=== PATIENT | male | born 1945 | race Caucasian/White ===

== ENCOUNTER 2019-04-03 20:45 | Observation (INO) | payer OTHER ==
[2019-04-03 21:29] LABS: Basophils % 0.8 % (0-1.3); Hematocrit 40.4 % (39.6-49.0); Lymphocytes % 32.2 % (15.3-44.8); MPV 10.7 fL (7.6-11.3); RBC Red Blood Cell Count 3.95 M/uL (4.33-5.43)
[2019-04-03 21:34] LABS: Protime INR 3.08
[2019-04-03 21:50] LABS: ALT/SGPT 20 U/L (12-78); AST/SGOT 31 U/L (15-37); Albumin 4.1 g/dL (3.4-5.0); Alkaline Phosphatase 111 U/L (45-117); BUN Blood Urea Nitrogen 11 mg/dL (7-18); Bicarbonate 28 mmol/L (21-32); Bilirubin Direct 0.4 mg/dL (0-0.2); Glucose Level 116 mg/dL (74-106); Magnesium 1.7 mg/dL (1.8-2.4); NT PRO-BNP 1007 pg/mL (<125); Potassium 4.2 mmol/L (3.5-5.1); Protein, Total 7.5 g/dL (6.4-8.2); Sodium Level 131 mmol/L (136-145); Troponin (Emerg Dept Use Only) < 0.02 ng/mL (0.0-0.045)
[2019-04-03] MEDS ORDERED: FENTANYL CITR 100 MCG/2 ML ONE (22:40)
[2019-04-03] MEDS ORDERED: MORPHINE 4 MG/ML SYR ONE (22:43)
--- NOTE | 2019-04-03 23:01 | ER ---
Nurse's Notes [facility] Name: Qamar Gamino Jr Age: 73 yrs Sex: Male : 1945 Arrival Date: 04/03/2019 Time: 20:46 Bed 14 Private MD: Diagnosis: Chest pain, unspecified;Altered mental status, unspecified-possible seizure Presentation: 04/03 20:50 Presenting complaint: Patient states: C/O chest pain that started 15 minutes ago. Pt wh states he feels weak. Per Son Pt had a seizure episode where he was blank and diaphoretic. Transition of care: patient was not received from another setting of care. Onset of symptoms was April 03, 2019. Risk Assessment: Do you want to hurt yourself or someone else? Patient reports no desire to harm self or others. Initial Sepsis Screen: Does the patient meet any 2 criteria? No. Patient's initial sepsis screen is negative. Does the patient have a suspected source of infection? No. Patient's initial sepsis screen is negative. Care prior to arrival: None. 20:50 Method Of Arrival: Wheelchair 20:50 Acuity: LYLE 3 Historical: - Allergies: 21:37 No Known Allergies; wh - Home Meds: 21:37 gabapentin oral oral [Active]; Coumadin Oral [Active]; - PMHx: 21:37 Cirrhosis; - PSHx: 21:37 Back Surgery; - Immunization history:: Adult Immunizations unknown. - Social history:: Smoking status: Patient/guardian denies using tobacco. - Ebola Screening: : Patient negative for fever greater than or equal to 101.5 degrees Fahrenheit, and additional compatible Ebola Virus Disease symptoms Patient denies exposure to infectious person. Screenin:37 Abuse screen: Denies threats or abuse. Denies injuries from another. Nutritional screening: No deficits noted. Tuberculosis screening: No symptoms or risk factors identified. Fall Risk None identified. Assessment: 21:00 General: Appears in no apparent distress. Behavior is calm, cooperative, appropriate wh for age. Pain: Complains of pain in chest Pain does not radiate. Pain currently is 2 out of 10 on a pain scale. Quality of pain is described as pressure, Pain began gradually, 30 min ago. Neuro: Level of Consciousness is awake, alert, obeys commands, Oriented to person, place, time, situation, Appropriate for age Health Informatics Instructor are equal bilaterally Moves all extremities. Gait is steady, Speech is normal, Facial symmetry appears normal, Pupils are PERRLA. Cardiovascular: Reports chest pain, Heart tones S1 S2 Rhythm is atrial fibrillation. Respiratory: Airway is patent Respiratory effort is even, unlabored, Respiratory pattern is regular, symmetrical, Breath sounds are clear bilaterally. GI: Abdomen is flat, non-distended. : No signs and/or symptoms were reported regarding the genitourinary system. EENT: No signs and/or symptoms were reported regarding the EENT system. Derm: Skin is intact, is healthy with good turgor, Skin is pink, warm \T\ dry. normal. Musculoskeletal: Circulation, motion, and sensation intact. 21:40 Reassessment: Patient appears in no apparent distress at this time. No changes from previously documented assessment. Patient and/or family updated on plan of care and expected duration. Pain level reassessed. Patient is alert, oriented x 3, equal unlabored respirations, skin warm/dry/pink. 22:30 Reassessment: Patient appears in no apparent distress at this time. No changes from previously documented assessment. Patient and/or family updated on plan of care and expected duration. Pain level reassessed. Patient is alert, oriented x 3, equal unlabored respirations, skin warm/dry/pink. 23:30 Reassessment: Patient appears in no apparent distress at this time. No changes from previously documented assessment. Patient and/or family updated on plan of care and expected duration. Pain level reassessed. Patient is alert, oriented x 3, equal unlabored respirations, skin warm/dry/pink. MD at bedside explaining POC need for admit. Reassessment:. 04/04 00:26 Reassessment: Patient appears in no apparent distress at this time. No changes from previously documented assessment. Patient and/or family updated on plan of care and expected duration. Pain level reassessed. Patient is alert, oriented x 3, equal unlabored respirations, skin warm/dry/pink. Patient states symptoms have improved. 01:20 Reassessment: Patient appears in no apparent distress at this time. No changes from previously documented assessment. Patient and/or family updated on plan of care and expected duration. Pain level reassessed. Patient is alert, oriented x 3, equal unlabored respirations, skin warm/dry/pink. Patient states symptoms have improved. Vital Signs: 04/03 20:50 BP 127 / 70; Pulse 59; Resp 18; Temp 98.4; Pulse Ox 100% ; Weight 105.19 kg; Height 5 wh ft. 9 in. (175.26 cm); Pain 5/10; 21:41 BP 138 / 64; Pulse 70; Resp 16; Pulse Ox 100% ; 23:00 BP 140 / 68; Pulse 71; Resp 18; Pulse Ox 97% ; 04/04 00:15 BP 138 / 92; Pulse 68; Resp 18; Pulse Ox 98% on R/A; 01:15 BP 155 / 78; Pulse 64; Resp 18; Pulse Ox 98% on R/A; 04/03 20:50 Body Mass Index 34.25 (105.19 kg, 175.26 cm) ED Course: 04/03 20:46 Patient arrived in ED. es 20:47 [facility]ulo [facility]C [facility] snw 20:47 Ori Hollingsworth MD is Attending Physician. snw 21:00 Arm band placed on right wrist. 21:00 Patient has correct armband on for positive identification. Placed in gown. Bed in low wh position. Call light in reach. Side rails up X 1. hall monitor on. Pulse ox on. NIBP on. 21:00 Inserted saline lock: 20 gauge in right antecubital area, using aseptic technique. wh Blood collected. Patient maintains SpO2 saturation greater than 95% on room air. 21:30 Clarissa Kenyon is Primary Nurse. 21:32 XRAY Chest (1 view) In Process Unspecified. EDMS 21:33 Triage completed. 21:34 CT Head C Spine In Process Unspecified. EDMS 22:57 Valente Anne MD is Hospitalizing Provider. snw 04/04 01:24 No provider procedures requiring assistance completed. Patient admitted, IV remains in place. Administered Medications: 04/03 22:37 CANCELLED (Inappropriate at this time): fentaNYL (PF) 25 mcg IVP once; RASS on ADMIN: snw Combtv4, Very Agttd3, Agttd2, Rstlss1, AlertClm0, Drwsy-1, Lt Sdtn-2, Mod Sdtn-3, Dp Sdtn-4, UnArsble-5 22:44 Drug: morphine 4 mg Route: IVP; Site: right antecubital; 04/04 00:21 Follow up: Response: No adverse reaction; Pain is decreased; RASS: Alert and Calm (0) Outcome: 04/03 23:00 Decision to Hospitalize by Provider. snw 04/04 01:24 Admitted to Med/surg accompanied by nurse, via wheelchair, room 209, with chart, Report called to Samreen RAMOS Condition: stable Instructed on the need for admit. 01:26 Patient left the ED. Signatures: Dispatcher [employer] Becca Lala, CARL LUBRICATION EQUIPMENT SERVICER-CsnGia Vargas Winsy Corrections: (The following items were deleted from the chart) 04/03 21:40 21:37 Pain: Pain began [facility]
--- NOTE | 2019-04-03 23:01 | EDPHYS ---
Physician Documentation [facility] Name: Qamar Gamino Jr Age: 73 yrs Sex: Male : 1945 Arrival Date: 04/03/2019 Time: 20:46 Bed 14 Private MD: ED Physician Ori Hollingsworth HPI: 04/03 21:41 This 73 yrs old Male presents to ER via Wheelchair with complaints of Chest snw Pain. 21:41 Onset: The symptoms/episode began/occurred suddenly, 1 hour(s) ago, and became snw persistent. Associated signs and symptoms: Pertinent positives: shortness of breath, nausea, diaphoresis, possible seizure. The patient has not experienced similar symptoms in the past. sees Leah Israel. attempted to call two pharmacies for medication list, both closed. Pt can only tell me he has a hx of cirrhosis, takes warfarin and gabapentin and something that starts with "p". Historical: - Allergies: 21:37 No Known Allergies; - Home Meds: 21:37 gabapentin oral oral [Active]; Coumadin Oral [Active]; - PMHx: 21:37 Cirrhosis; - PSHx: 21:37 Back Surgery; - Immunization history:: Adult Immunizations unknown. - Social history:: Smoking status: Patient/guardian denies using tobacco. - Ebola Screening: : Patient negative for fever greater than or equal to 101.5 degrees Fahrenheit, and additional compatible Ebola Virus Disease symptoms Patient denies exposure to infectious person. ROS: 21:35 Eyes: Negative for injury, pain, redness, and discharge, ENT: Negative for injury, snw pain, and discharge, Neck: Negative for injury, pain, and swelling. 21:35 Back: Negative for injury and pain, : Negative for injury, bleeding, discharge, and swelling, MS/Extremity: Negative for injury and deformity, Skin: Negative for injury, rash, and discoloration. 21:35 Constitutional: Positive for fatigue, malaise, seizure activity per family. State pt became diaphoretic, went unresponsive, started shaking all over. Pt came to in seat, no incontinence. 21:35 Cardiovascular: Positive for chest pain, of the chest. 21:35 Respiratory: Positive for shortness of breath. 21:35 Abdomen/GI: Positive for nausea. 21:35 Neuro: Positive for as noted for possible seizure and AMS. Exam: 21:33 Head/Face: Normocephalic, atraumatic. Eyes: Pupils equal round and reactive to light, snw extra-ocular motions intact. Lids and lashes normal. Conjunctiva and sclera are non-icteric and not injected. Cornea within normal limits. Periorbital areas with no swelling, redness, or edema. ENT: Nares patent. No nasal discharge, no septal abnormalities noted. Tympanic membranes are normal and external auditory canals are clear. Oropharynx with no redness, swelling, or masses, exudates, or evidence of obstruction, uvula midline. Mucous membranes moist. Neck: Trachea midline, no thyromegaly or masses palpated, and no cervical lymphadenopathy. Supple, full range of motion without nuchal rigidity, or vertebral point tenderness. No Meningismus. Chest/axilla: Normal chest wall appearance and motion. Nontender with no deformity. No lesions are appreciated. 21:33 Abdomen/GI: Soft, non-tender, with normal bowel sounds. No distension or tympany. No guarding or rebound. No evidence of tenderness throughout. Back: No spinal tenderness. No costovertebral tenderness. Full range of motion. Skin: Warm, dry with normal turgor. Normal color with no rashes, no lesions, and no evidence of cellulitis. MS/ Extremity: Pulses equal, no cyanosis. Neurovascular intact. Full, normal range of motion. Psych: Awake, alert, with orientation to person, place and time. Behavior, mood, and affect are within normal limits. 21:33 Constitutional: The patient appears awake, anxious, listless, restless, uncomfortable. 21:33 Cardiovascular: Rate: normal, Rhythm: irregularly irregular, Pulses: no pulse deficits are appreciated, Heart sounds: normal, Edema: is not appreciated. 21:33 Respiratory: the patient does not display signs of respiratory distress, Respirations: shallow respirations, that is moderate, Breath sounds: are clear throughout. 21:33 Neuro: Orientation: to person, place, time, Mentation: able to follow commands, confused, Motor: is normal, Sensation: is normal, Gait: not tested. seizure activity, not in ED. Vital Signs: 20:50 BP 127 / 70; Pulse 59; Resp 18; Temp 98.4; Pulse Ox 100% ; Weight 105.19 kg; Height 5 wh ft. 9 in. (175.26 cm); Pain 5/10; 21:41 BP 138 / 64; Pulse 70; Resp 16; Pulse Ox 100% ; wh 23:00 BP 140 / 68; Pulse 71; Resp 18; Pulse Ox 97% ; wh 04/04 00:15 BP 138 / 92; Pulse 68; Resp 18; Pulse Ox 98% on R/A; wh 01:15 BP 155 / 78; Pulse 64; Resp 18; Pulse Ox 98% on R/A; wh 04/03 20:50 Body Mass Index 34.25 (105.19 kg, 175.26 cm) wh MDM: 04/03 20:53 Patient medically screened. snw 22:37 Data reviewed: vital signs, nurses notes. Data interpreted: Pulse oximetry: on room air snw is 100 %. Interpretation: normal. Counseling: I had a detailed discussion with the patient and/or guardian regarding: the historical points, exam findings, and any diagnostic results supporting the discharge/admit diagnosis, the presence of at least one elevated blood pressure reading (>120/80) during this emergency department visit, lab results, radiology results, the need for further work-up and treatment in the hospital. Response to treatment: the patient's symptoms have mildly improved after treatment, less confused, more verbal, c/o pain to central chest, joint pain at 7/10. 22:56 Physician consultation: Valente Anne MD was called at 22:40, was contacted at 22:40, snw awaiting CT results. 04/03 20:53 Order name: Basic Metabolic Panel; Complete Time: 21:53 snw 04/03 20:53 Order name: CBC with Diff; Complete Time: 21:44 snw 04/03 20:53 Order name: LFT's; Complete Time: 21:53 snw 04/03 20:53 Order name: Magnesium; Complete Time: 21:53 snw 04/03 20:53 Order name: NT PRO-BNP; Complete Time: 21:53 snw 04/03 20:53 Order name: PT-INR; Complete Time: 21:44 snw 04/03 20:53 Order name: Troponin (emerg Dept Use Only); Complete Time: 21:53 snw 04/03 21:03 Order name: AMMONIA; Complete Time: 21:53 snw 04/03 23:21 Order name: Thyroid Stimulating Hormone EDLA 04/03 23:21 Order name: CKMB Creatine Kinase MB EDLA 04/03 23:22 Order name: CKMB Creatine Kinase MB [facility] 04/03 23:22 Order name: CKMB Creatine Kinase MB [facility] 04/03 23:22 Order name: CKMB Creatine Kinase MB [facility] 04/03 23:22 Order name: Comprehensive Metabolic Panel [facility] 04/03 20:53 Order name: XRAY Chest (1 view) sn 04/03 20:53 Order name: EKG; Complete Time: 20:54 snw 04/03 21:03 Order name: CT Head C Spine sn 04/03 23:22 Order name: Comprehensive Metabolic Panel [facility] 04/03 23:22 Order name: Lipid Profile [facility] 04/03 23:22 Order name: Lipid Profile [facility] 04/03 23:22 Order name: Magnesium [facility] 04/03 23:22 Order name: Magnesium [facility] 04/03 23:22 Order name: Phosphorus [facility] 04/03 23:22 Order name: Phosphorus [facility] 04/03 23:22 Order name: Troponin I [facility] 04/03 23:22 Order name: Troponin I [facility] 04/03 23:22 Order name: Troponin I [facility] 04/03 23:22 Order name: Troponin I [facility] 04/03 20:53 Order name: Cardiac monitoring; Complete Time: 21:12 w 04/03 20:53 Order name: EKG - Nurse/Tech; Complete Time: 21:13 [facility] 04/03 20:53 Order name: IV Saline Lock; Complete Time: 21:13 [facility] 04/03 20:53 Order name: Labs collected and sent; Complete Time: 21:13 [facility] 04/03 20:53 Order name: O2 Per Protocol; Complete Time: 21:13 [facility] 04/03 20:53 Order name: O2 Sat Monitoring; Complete Time: 21:13 [facility] 04/03 23:23 Order name: CONS Physician Consult [facility] 04/03 23:23 Order name: Heart Healthy EDLA Administered Medications: 22:37 CANCELLED (Inappropriate at this time): fentaNYL (PF) 25 mcg IVP once; RASS on ADMIN: snw Combtv4, Very Agttd3, Agttd2, Rstlss1, AlertClm0, Drwsy-1, Lt Sdtn-2, Mod Sdtn-3, Dp Sdtn-4, UnArsble-5 22:44 Drug: morphine 4 mg Route: IVP; Site: right antecubital; 04/04 00:21 Follow up: Response: No adverse reaction; Pain is decreased; RASS: Alert and Calm (0) Disposition: 06:00 Co-signature as Attending Physician, Ori Hollingsworth MD I agree with the assessment and tw4 plan of care. Disposition: 04/03/19 23:00 Hospitalization ordered by Valente Anne for Observation. Preliminary diagnosis are Chest pain, unspecified, Altered mental status, unspecified - possible seizure. - Bed requested for Telemetry/MedSurg (observation). - Status is Observation. - Condition is Stable. - Problem is new. - Symptoms have improved. UTI on Admission? No Signatures: Dispatcher [employer] EDIvelisse Gilbert RN RN kl Therrien, Shelly, COMMUNITY RELATIONS COORDINATOR-C COMMUNITY RELATIONS COORDINATOR-Clarissa Moura Ori Hollingsworth MD MD tw4 Corrections: (The following items were deleted from the chart) 04/03 22:37 22:31 fentaNYL (PF) 25 mcg IVP once; RASS on ADMIN: Combtv4, Very Agttd3, Agttd2, snw Rstlss1, AlertClm0, Drwsy-1, Lt Sdtn-2, Mod Sdtn-3, Dp Sdtn-4, UnArsble-5 ordered. [facility] 04/04 00:18 04/03 23:00 Hospitalization Ordered by Valente Anne MD for Observation. Preliminary diagnosis is Chest pain, unspecified; Altered mental status, unspecified - possible seizure. Bed requested for Telemetry/MedSurg (observation). Status is Observation. Condition is Stable. Problem is new. Symptoms have improved. UTI on Admission? No. snw 04/04 01:26 00:18 04/03/2019 23:00 Hospitalization Ordered by Valente Anne MD for Observation. Preliminary diagnosis is Chest pain, unspecified; Altered mental status, unspecified - possible seizure. Bed requested for Telemetry/MedSurg (observation). Status is Observation. Condition is Stable. Problem is new. Symptoms have improved. UTI on Admission? No. kl
[2019-04-03] MEDS ORDERED: ACETAMINOPHEN 500 MG TAB PO PRN (23:16)
[2019-04-03] MEDS ORDERED: ONDANSETRON 4 MG/2 ML VIAL IV PRN (23:16)
--- NOTE | 2019-04-03 23:22 | P.HP ---
Certification for Inpatient Patient admitted to: Observation With expected LOS: <2 Midnights Patient will require the following post-hospital care: None Practitioner: I am a practitioner with admitting privileges, knowledge of patient current condition, hospital course, and medical plan of care. Services: Services provided to patient in accordance with Admission requirements found in Title 42 Section 412.3 of the Code of Federal Regulations Patient History Date of Service: 04/03/19 Reason for admission: Chest Pain History of Present Illness: 73-year-old male with past medical history of hypertension, cirrhosis, atrial fibrillation admitted with chest pain. Patient is a poor historian hence most of the history is obtained from the chart review and also talking to the ER physician. Patient states that he started having chest pain today afternoon. Pain is located in the retrosternal area radiating to the left arm, pressure- like, 2/10 in severity at the time of interview. Denies any fever or chills. Was associated with a presyncopal episode and confusion with possible seizure- like activity. Associated with shortness of breath. no nausea vomiting and diarrhea. Patient denies any previous history of CAD. Patient was assessed in the ER and is being admitted for further monitoring and management of chest pain to rule out ACS Home medications list reviewed: Yes - Past Medical/Surgical History Past Medical History: Reviewed- Non-Contributory -: Cirrhosis liver -: Hypertension -: atrial fibrillation on Coumadin Past Surgical History: Reviewed- Non-Contributory - Family History Family History: Reviewed- Non-Contributory - Social History Smoking Status: Former smoker Review of Systems 10-point ROS is otherwise unremarkable Physical Examination - Vital Signs Temperature: 98.1 F Blood Pressure: 156/92 Pulse: 112 Respirations: 18 - Physical Exam General: Alert, Oriented x2, Mild distress HEENT: Atraumatic, Normocephalic Neck: Supple Respiratory: Clear to auscultation bilaterally, Normal air movement Cardiovascular: Other (Tachycardia), Irregular heart rate/rhythm Capillary refill: <2 Seconds Gastrointestinal: Soft and benign, W/out hepatosplenomegaly Musculoskeletal: No clubbing, No swelling Integumentary: No rashes, No significant lesion Neurological: Normal speech, Normal strength at 5/5 x4 extr Lymphatics: No axilla or inguinal lymphadenopathy Urinary: Other (No bladder distention) External genitalia: Deferred Rectal: Deferred - Studies Laboratory Data (last 24 hrs) 04/03/19 21:05: PT 34.8 H, INR 3.08 04/03/19 21:05: WBC 6.1, Hgb 13.8, Hct 40.4, Plt Count 151 L 04/03/19 21:05: Sodium 131 L, Potassium 4.2, BUN 11, Creatinine 1.28, Glucose 116 H, Magnesium 1.7 L, Total Bilirubin 1.0, AST 31, ALT 20, Alkaline Phosphatase 111 Assessment and Plan - Problems (Diagnosis) (1) Chest pain, rule out acute myocardial infarction Current Visit: Yes Status: Acute (2) Atrial fibrillation Current Visit: Yes Status: Chronic (3) History of cirrhosis Current Visit: Yes Status: Chronic (4) Hypertension Current Visit: Yes Status: Chronic (5) Syncopal episodes Current Visit: Yes Status: Acute (6) Seizure Current Visit: Yes Status: Acute - Plan Chest pain to rule out ACS Presyncopal episode Possible seizure-like activity Atrial fibrillation on Coumadin hypertension History of cirrhosis Plan Monitor under telemetry Trend cardiac enzymes monitor neuro vital signs Seizure precautions Will get a CT of the brain cardiology consult Start on aspirin statin Antihypertensives titrate Continue home medications and titrate as needed Will hold Coumadin for now GI/DVT prophylaxis Advanced directives full code - Advance Directives Does patient have a Living Will: No Does patient have a Durable POA for Healthcare: No Time Spent Managing Pts Care (In Minutes): 44
[2019-04-03] MEDS: ASPIRIN EC 81 MG TAB PO SCH (23:43)
[2019-04-04] MEDS: NA CHLORIDE 0.9% 1,000 ML IV SCH ×2 (02:18→10:15)
[2019-04-04 02:33] LABS: CKMB Creatine Kinase MB < 1.0 ng/mL (0.3-3.6); Troponin I < 0.02 ng/mL (0.0-0.045)
[2019-04-04 02:54] VITALS: BMI 34.2
[2019-04-04] MEDS: HYDROCODONE/APAP 5/325 MG TAB PO PRN ×3 (03:08→15:22)
[2019-04-04 03:14] LABS: Thyroid Stimulating Hormone 3.77 uIU/mL (0.360-3.740)
[2019-04-04 03:40] LABS: Urine Appearance CLEAR; Urine Bilirubin NEGATIVE (NEG); Urine Blood NEGATIVE (NEG); Urine Color YELLOW; Urine Glucose NEGATIVE (NEG); Urine Protein NEGATIVE (NEG)
[2019-04-04 03:48] LABS: Urine Microscopic Reflex NO UMIC
--- NOTE | 2019-04-04 09:11 | RAD REPORT ---
EXAM DESCRIPTION: RAD - Chest Single View - 04/03/2019 9:34 pm CLINICAL HISTORY: Chest pain COMPARISON: None. TECHNIQUE: AP portable chest image was obtained 2128 hours . FINDINGS: Lung alexandra are clear. No failure or volume overload. Interstitial pattern is within range of normal for patient age. As labeled, the chest films show the heart and aortic arch are on the right side of the chest. Patien t has no comparison imaging to determine if this is incorrect labeling of the examination for a true situs inversus. Air-filled bowel loops are seen underneath each hemidiaphragm. Upper lobe vasculature within normal limits. Trachea is midline. No measurable pleural effusion and no pneumothorax. No acu te bony abnormality seen. No acute aortic findings suspected. IMPRESSION: No acute cardiopulmonary process. Heart and aortic arch on the right side of the chest. This is most likely an error in labeling the ch est film rather than situs inversus. The patient has no comparison imaging.
[2019-04-04 10:14] LABS: Absolute Lymphocytes (CBC) 1.1 K/uL (0.7-4.9); Basophils % 1.1 % (0-1.3); Hematocrit 36.5 % (39.6-49.0); Lymphocytes % 28.6 % (15.3-44.8); MPV 10.9 fL (7.6-11.3); RBC Red Blood Cell Count 3.59 M/uL (4.33-5.43)
[2019-04-04] MEDS: ASPIRIN EC 81 MG TAB PO SCH (10:15)
[2019-04-04 10:24] LABS: CKMB Creatine Kinase MB < 1.0 ng/mL (0.3-3.6); Troponin I < 0.02 ng/mL (0.0-0.045)
[2019-04-04 10:25] LABS: Albumin 3.6 g/dL (3.4-5.0); Bilirubin Total 2.2 mg/dL (0.2-1.0); Magnesium 1.9 mg/dL (1.8-2.4); Phosphorus 3.5 mg/dL (2.5-4.9); Potassium 4.3 mmol/L (3.5-5.1); Protein, Total 6.7 g/dL (6.4-8.2)
--- NOTE | 2019-04-04 10:35 | P.PN ---
Subjective Date of Service: 04/04/19 Chief Complaint: Chest Pain Subjective: No new changes (still chest pain) Review of Systems 10-point ROS is otherwise unremarkable Physical Examination - Vital Signs Temperature: 98 F Blood Pressure: 116/68 Pulse: 62 Respirations: 20 Pulse Ox (%): 96 - Physical Exam General: Alert, Oriented x3, Cooperative HEENT: Atraumatic, Normocephalic, PERRLA Neck: Supple, 2+ carotid pulse no bruit, JVD not distended Respiratory: Clear to auscultation bilaterally, Normal air movement, Other ( tenderness over left chest wall ) Cardiovascular: No edema, Regular rate/rhythm, Normal S1 S2 Gastrointestinal: Normal bowel sounds, Soft and benign Musculoskeletal: No clubbing, No swelling Integumentary: No rashes, No breakdown Neurological: Normal gait, Normal speech, Normal strength at 5/5 x4 extr, Normal tone - Studies Laboratory Data (last 24 hrs) 04/03/19 21:05: PT 34.8 H, INR 3.08 04/03/19 21:05: WBC 6.1, Hgb 13.8, Hct 40.4, Plt Count 151 L 04/03/19 21:05: Sodium 131 L, Potassium 4.2, BUN 11, Creatinine 1.28, Glucose 116 H, Magnesium 1.7 L, Total Bilirubin 1.0, AST 31, ALT 20, Alkaline Phosphatase 111 Medications List Reviewed: Yes Assessment & Plan Physician Review: Patient Assessed, Agree with Above Assessment and Plan Physician Review Additional Text: # Chest pain - ruled out for ASC with negative sets of CE - elevated pro-bnp , will dc IVF - start low dose lasix - possible infiltrate on CXR on my review ( also wrong labelling of CXR as heart sounds on left side ), will start abx with rocephin - start naproxen for pain relief # HTN - controlled, c/w regime # Liver Cirrhosis /Atrial fib on couamdin -INR at target # DVT prop- on A/C Dispo - possible home in 24 hrs Critical Care: Yes
[2019-04-04 10:52] LABS: Blood Morphology Comment NOT SEEN (NOT SEEN); Platelet Estimate ADEQ
[2019-04-04] MEDS: FUROSEMIDE 40 MG/4 ML VIAL IV SCH ×2 (11:05→17:29)
[2019-04-04] MEDS: NAPROXEN 250 MG TAB PO SCH ×2 (13:20→21:22)
[2019-04-04] MEDS: CEFTRIAXONE/SWI 1gm 1 GM/10 ML SYR IVP SCH (14:00)
[2019-04-04 17:56] LABS: CKMB Creatine Kinase MB 1.2 ng/mL (0.3-3.6); Troponin I < 0.02 ng/mL (0.0-0.045)
[2019-04-04] MEDS ORDERED: ATORVASTATIN 40 MG TAB PO SCH (21:00)
[2019-04-04] MEDS: FAMOTIDINE 20 MG TAB PO SCH (21:22)
[2019-04-05 05:33] LABS: Absolute Lymphocytes (CBC) 1.3 K/uL (0.7-4.9); Basophils % 0.9 % (0-1.3); Lymphocytes % 33.1 % (15.3-44.8); MPV 10.9 fL (7.6-11.3)
[2019-04-05 06:44] LABS: Albumin 3.8 g/dL (3.4-5.0); Bilirubin Total 1.6 mg/dL (0.2-1.0); Potassium 4.7 mmol/L (3.5-5.1); Protein, Total 6.8 g/dL (6.4-8.2)
[2019-04-05] MEDS ORDERED: CEFTRIAXONE/SWI 1gm 1 GM/10 ML SYR IVP SCH (09:00)
[2019-04-05] MEDS: NAPROXEN 250 MG TAB PO SCH ×2 (09:20→13:51)
[2019-04-05] MEDS: FUROSEMIDE 40 MG/4 ML VIAL IV SCH (09:21)
[2019-04-05] MEDS: FAMOTIDINE 20 MG TAB PO SCH (09:22)
[2019-04-05] MEDS: ASPIRIN EC 81 MG TAB PO SCH (09:22)
[2019-04-05] MEDS: CEFTRIAXONE/SWI 1gm 1 GM/10 ML SYR IVP SCH (09:22)
--- NOTE | 2019-04-05 11:46 | EKG ---
Test Date: 2019-04-03 Test Time: 20:53:09 Loss Prevention Investigator: JOSEPH MEASUREMENT RESULTS: Intervals: Rate: 76 MS: QRSD: 92 QT: 422 QTc: 474 [place]: P: MS: QRS: 11 T: 41 INTERPRETIVE STATEMENTS: Atrial fibrillation Abnormal ECG No previous ECG available for comparison Electronically Signed On 04-05-19 11:42:24 MAIL DELIVERY SUPERVISOR by Luis Marte
[2019-04-05 13:01] VITALS: O2SAT 96
[2019-04-05 14:40] VITALS: BP 158/81; TEMP 98
--- NOTE | 2019-04-06 09:40 | RAD REPORT ---
EXAM DESCRIPTION: CT - [facility] - 04/04/2019 2:32 am CLINICAL HISTORY: Altered mental status. TECHNIQUE: 1. Head CT without contrast. 5 mm axial images were obtained along with 3 mm coronal and sagittal reformatted images. 2. Cervical spine CT without contrast. 2 mm axial images were obtained along with 2 mm coronal and sa gittal reformatted images. This exam was performed according to our departmental dose-optimization program, which includes autom ated exposure control, adjustment of the mA and/or kV according to patient size and/or use of iterati ve reconstruction technique. COMPARISON: None. FINDINGS: HEAD CT: No acute extracerebral fluid collections are demonstrated. There is moderately severe prominence of the cortical sulci and ventricles and cisterns consistent wi th global parenchymal volume loss. There is a moderate-sized area of encephalomalacia within the left cerebellar hemisphere consistent w ith old infarct. There is moderately severe chronic bilateral periventricular microangiopathic white matter changes. There is atherosclerosis of the internal carotid arteries bilaterally. There is severe mucosal thickening within the left maxillary sinus and moderately severe mucosal thic kening within the frontal and anterior ethmoid air cells bilaterally. IMPRESSION: 1. No acute intracranial abnormalities. 2. 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 3. Paranasal sinusitis. CT CERVICAL FINDINGS: BONY STRUCTURES: C1: No fracture or subluxation. There are moderately severe degenerative changes about the atlantodental articulation. C2: No fracture or subluxation. C3: No fracture or subluxation. There is severe degenerative disc disease and spondylosis with large ossified bridging syndesmophytes anteriorly. There is moderately severe encroachment of left neural foramen secondary to endplate osteophyte forma tion. C4: No fracture or subluxation. There is severe degenerative disc disease and spondylosis with partial fusion of the C3-4 and C5 vert ebra. C5: No fracture or subluxation. Severe spondylosis with large bridging syndesmophyte noted anteriorly. C6: There is no fracture or subluxation. There is spondylolysis on the right. There is severe degenerative disc disease and spondylosis. C7 There is no fracture or subluxation. T1: There is no fracture or subluxation. There is severe bilateral facet arthropathy at T1-T2. SOFT TISSUES: There is atherosclerosis about the carotid arteries bilaterally. LUNG APICES: No pneumothorax. IMPRESSION: 1. No fracture or subluxation. 2. Severe degenerative changes as described above. 3. 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 Electronically signed by: Bar Paz MD 04/03/2019 10:21 PM [employer] Due to temporary technical issues with the PACS/Fluency reporting system, reports are being signed by the in house radiologist as a courtesy to ensure prompt reporting. The interpreting radiologist is f ully responsible for the content of the report.
--- NOTE | 2019-04-06 17:16 | CON ---
Date of Consultation: 04/04/[address] Thompson on 04/03/2019. The patient was seen on 04/04/2019. Reason For Consultation: Presyncope and chest pain. History Of Present Illness: Mr. Gamino is 73, has a history of cirrhosis, atrial fibrillation, hyper tension, dyslipidemia, neuropathy, and gastroesophageal reflux disease. He is supposed to be taking Coumadin, lisinopril, Protonix, and gabapentin at home. He came in with fever, pneumonia, and presyn cope, chest pain was sharp, pleuritic type. No nausea, vomiting, diaphoresis, PND, orthopnea, pedal edema, or palpitation. He has chronic atrial fibrillation with a heart rate in the 50s. Past Medical History: As stated above. Allergies: NONE. Review of Systems: Negative. Social History: Negative. Family History: Negative. Medications: Listed earlier. Physical Examination: Vital Signs: Weight 231 pounds, atrial fibrillation noted at 57. Vital signs were otherwise stable. He was afebrile. HEENT: Negative. Neck: Supple with no bruit. Chest: Clear on the right. He has some crackles in the left base. Cardiac: Revealed atrial fibrillation. Abdomen: Benign. Extremities: Revealed no clubbing, cyanosis, or edema. Diagnostic Data: His INR was 3.08. BNP was 1007. EKG showed atrial fibrillation. Chest x-ray show ed pneumonia. Impression And Plan: 1.Presyncope and chest pain secondary to pneumonia. I doubt if we are dealing with any coronary acu te syndrome. 2.Cirrhosis. 3.Chronic atrial fibrillation, on Coumadin. Rate controlled, asymptomatic. 4.Gastroesophageal reflux disease. 5.Hypertension, well controlled. 6.Dyslipidemia, well controlled. 7.Neuropathy. Patient is presently on Lasix, aspirin, antibiotics, Lipitor, and Pepcid. I agree wi th his present regimen. No need for any cardiac testing at this point. Once he is over his pneumoni a, we can continue his present regimen. As far as the Coumadin is concerned, his rate is controlled. He does not need to be on any beta kiara. I would like to see him in the office as an outpatient and we will follow him along. ALVINO/EARNEST Voice ID: [id number] Report ID: [id number]
--- NOTE | 2019-04-22 14:14 | P.DS ---
Admission Date: 04/03/19 Discharge Date: 04/22/19 Disposition: ROUTINE DISCHARGE Discharge Condition: GOOD Reason for Admission: Chest Pain Brief History of Present Illness: paient admitted for chest pain , see full Hpi Hospital Course: patient was evaluated by cardiology , remained chest pain free . it was felt he has pneumonia on his CXR and started on antibiotics with improvement in his chest pain and SOB . he will be discharged home on abx Vital Signs/Physical Exam: Temp Pulse Resp BP Pulse Ox 98 F 80 18 158/81 H 96 04/05/19 12:00 04/05/19 12:00 04/05/19 12:00 04/05/19 12:00 04/05/19 12:00 General: Alert, In no apparent distress, Oriented x3 HEENT: Atraumatic, Normocephalic Neck: Supple, 2+ carotid pulse no bruit Respiratory: Clear to auscultation bilaterally, Normal air movement Cardiovascular: No edema, Normal pulses, Regular rate/rhythm, Normal S1 S2 Gastrointestinal: Normal bowel sounds, Soft and benign Musculoskeletal: No clubbing, No swelling Neurological: Normal gait, Normal speech Laboratory Data at Discharge: WBC 3.8 K/uL (4.3-10.9) L 04/05/19 05:10 Hgb 13.4 g/dL (13.6-17.9) L 04/05/19 05:10 Hct 39.0 % (39.6-49.0) L 04/05/19 05:10 Plt Count 114 K/uL (152-406) L 04/05/19 05:10 PT 34.8 SECONDS (9.5-12.5) H 04/03/19 21:05 INR 3.08 04/03/19 21:05 Sodium 136 mmol/L (136-145) 04/05/19 05:04 Potassium 4.7 mmol/L (3.5-5.1) 04/05/19 05:04 BUN 14 mg/dL (7-18) 04/05/19 05:04 Creatinine 1.28 mg/dL (0.55-1.3) 04/05/19 05:04 Glucose 105 mg/dL (74-106) 04/05/19 05:04 Phosphorus 3.5 mg/dL (2.5-4.9) 04/04/19 09:56 Magnesium 1.9 mg/dL (1.8-2.4) 04/04/19 09:56 Total Bilirubin 1.6 mg/dL (0.2-1.0) H 04/05/19 05:04 AST 24 U/L (15-37) 04/05/19 05:04 ALT 18 U/L (12-78) 04/05/19 05:04 Alkaline Phosphatase 98 U/L (45-117) 04/05/19 05:04 Troponin I < 0.02 ng/mL (0.0-0.045) 04/04/19 17:30 Triglycerides 48 mg/dL (<150) 04/04/19 09:56 Cholesterol 131 mg/dL (<200) 04/04/19 09:56 HDL Cholesterol 82 mg/dL (40-60) H 04/04/19 09:56 Cholesterol/HDL Ratio 1.60 04/04/19 09:56 Home Medications: Fluticasone [Flonase 50MCG Nasal [place]*] 2 sprays IH BID 04/04/19 Gabapentin 300 mg PO TID 04/04/19 Hydrocodone/Acetaminophen [Hydrocodone-Acetamin 10-325 mg] 1 tab PO Q8H Lisinopril [Zestril] 10 mg PO DAILY 04/04/19 Pantoprazole [Protonix Tab*] 40 mg PO BID 04/04/19 Tizanidine HCl [Zanaflex] 4 mg PO Q8HP PRN 04/04/19 Warfarin Sodium [Coumadin*] 5 mg PO SEECOM 04/04/19 Warfarin Sodium [Coumadin*] 7.5 mg PO SEECOM 04/04/19 Levofloxacin [Levaquin] 500 mg PO DAILY #5 tablet 04/05/19 New Medications: Levofloxacin [Levaquin] 500 mg PO DAILY #5 tablet Patient Discharge Instructions: follow up with your PCP in less than 1 week Diet: Regular Activity: Ad oswaldo Physician Review: Patient Assessed, Agree with Above Assessment and Plan Time spent managing pt's care (in minutes): 35
== END 2019-04-05 15:00 | disposition home or self-care (01) ==
LOC: ER 20:45 → INTOOBSV 23:17 → ERHOLD 23:17 → 2ND 04-04 01:06
PROVIDERS: ADMIT Family Medicine; ATTEND Family Medicine
DX: J18.9 Pneumonia, unspecified organism (principal); I10 Essential (primary) hypertension; E78.5 Hyperlipidemia, unspecified; K21.9 Gastro-esophageal reflux disease without esophagitis; I48.20 Chronic atrial fibrillation, unspecified; G62.9 Polyneuropathy, unspecified
CPT/HCPCS: 93005; 85025 ×3; 80048; 36415 ×3; 82140; 83735 ×2; 84100; 85610; 80061; 80076; 84443; 81003; 84484 ×4; 82553 ×3; 84439; 80053 ×2; 83880; 70450; 72125; 71045; 94760 ×4; 96374; 99285; J1940 ×3; J0696; J7030 ×2; G0378 ×3; J3010